=== PATIENT | male | born 1975 | race African-American/Black ===

== ENCOUNTER 2016-08-07 23:37 | Emergency (ER) | payer BC ==
[~2016-08-07] VITALS: Ht 182.9 cm; Wt 108.9 kg
[~2016-08-07 23:37] MED LIST: COLACE100 MG ORAL; DEBROX15 M1 OT; IBUPROFEN600 MG ORAL; IBUPROFEN600 MG PO; NORCO 5-325 TA1 EACH ORAL
[2016-08-07] MEDS ORDERED: NKM (23:56)
[2016-08-08] MEDS ORDERED: AMOXICILLIN500 MG ORAL (00:03)
[2016-08-08] MEDS ORDERED: IBUPROFEN600 MG PO (00:04)
[2016-08-08 00:15] VITALS: BP 108/60
[2016-08-08] MEDS ORDERED: Lidocaine 2% Visc 15ml soln ORAL ONE (00:15)
--- NOTE | 2016-08-13 13:41 | Emergency Room Report ---
History of Present Illness General Chief Complaint: Sore Throat Source: Patient Present Illness HPI Patient is a 41-year-old male who presented after increased sore throat. Patient had gradual onset of symptoms over the past one week. The patient not been vomiting. He denies any fever. He denied having productive cough. He denied any neck stiffness. He reported having some increased pain with swallowing. Allergies: Coded Allergies: No Known Allergies (Unverified , 11/23/12) Patient History Past Medical History: see triage record Reviewed Nursing Documentation: PMH: Agreed, PSxH: Agreed Nursing Documentation-PMH Past Medical History: No Stated History Review of Systems All Other Systems: negative except mentioned in HPI Physical Exam Vital Signs Date Time Temp Pulse Resp B/P Pulse Ox O2 Delivery O2 Flow Rate FiO2 08/07/16 23:52 97.9 62 18 108/60 97 Room Air General Appearance: well appearing, no apparent distress Head: normocephalic, atraumatic ENT: hearing grossly normal, normal voice, uvula midline, pharyngeal erythema - mild, no exudate Neck: full range of motion, supple Respiratory: no respiratory distress, speaking full sentences Musculoskeletal: no calf tenderness Neurologic: normal gait Psychiatric: mood/affect normal Skin: no rash Medical Decision Making Diagnostic Impression: Primary Impression: Sore throat Additional Impression: Pharyngitis ER Course Patient presented for sore throat. Differential diagnosis included but was not limited to meningitis, exudative tonsillitis, retropharyngeal abscess, epiglottitis, strep pharyngitis. Patient's benign exam and does not appear to require any further imaging or laboratory testing at this time. Patient was given viscous lidocaine for pain. The patient was given antibiotic prescription for probable strep pharyngitis. The patient is advised to follow up with primary care doctor in 1-2 days. Patient is advised to return if any worsening condition or if any changes in status that are concerning. Last Vital Signs Date Time Temp Pulse Resp B/P Pulse Ox O2 Delivery O2 Flow Rate FiO2 08/08/16 00:15 97.9 85 18 108/60 97 Room Air Disposition: HOME, SELF-CARE Condition: Stable Scripts Ibuprofen* (MOTRIN*) 600 Mg Tablet 600 MG PO TID, #20 TAB Take 1 tablet by mouth three times a day as needed for pain. Prov: Mike Thomas 08/08/16 Amoxicillin* (AMOXIL*) 500 Mg Capsule 500 MG ORAL THREE TIMES A DAY, #21 CAP Prov: Mike Thomas 08/08/16 Referrals: NOT CHOSEN IPA/MD,REFERRING (PCP) Patient Instructions: Sore Throat Mike Thomas Aug 13, 2016 13:41
== END 2016-08-08 00:15 | disposition home or self-care (01) ==
LOC: EMR 23:59
DX: J02.9 Acute pharyngitis, unspecified (principal)
CPT/HCPCS: 99284

== ENCOUNTER 2016-09-06 13:28 | Emergency (ER) | payer BC ==
[~2016-09-06] VITALS: Ht 182.9 cm; Wt 108.9 kg
[~2016-09-06 13:28] MED LIST changes: +AMOXICILLIN500 MG ORAL; +NKM
[2016-09-06 13:41] VITALS: BP 113/57
[2016-09-06] MEDS ORDERED: Phenazopyridine 200mg tab ORAL ONE (13:45)
[2016-09-06 14:19] LABS: APPEARANCE,URINE SLIGHTLY CLOUDY; KETONES,URINE NEGATIVE (NEGATIVE); LEUKOCYTE ESTERASE ,URINE 3+ (NEGATIVE); NITRITE,URINE NEGATIVE (NEGATIVE); PH,URINE 7 (4.5-8.0); PROTEIN,URINE NEGATIVE (NEGATIVE); UROBILINOGEN,URINE NORMAL MG/DL (0.0-1.0)
--- NOTE | 2016-09-06 14:24 | Emergency Room Report ---
History of Present Illness General Chief Complaint: Male Urogenital Problems Source: Patient Present Illness HPI 41 YO Male presents to the ED c/o penile d/c x 4 days with dysuria and recent unprotected intercourse, denies fevers, chills, lesions, testicular pain, swollen tender lymph nodes, or joint pain. denies abdominal pain, rashes, or previous hx of std's. Denies CP, Palpitations, LOC, AMS, dizziness, Changes in Vision, Sensation, paresthesias, or a sudden severe headache. Allergies: Coded Allergies: No Known Allergies (Unverified , 11/23/12) Patient History Past Medical History: see triage record Past Surgical History: none Pertinent Family History: none Reviewed Nursing Documentation: PMH: Agreed, PSxH: Agreed Nursing Documentation-PMH Past Medical History: No Stated History Review of Systems All Other Systems: negative except mentioned in HPI Physical Exam Vital Signs Date Time Temp Pulse Resp B/P Pulse Ox O2 Delivery O2 Flow Rate FiO2 09/06/16 13:34 97.7 64 14 113/57 99 Room Air Sp02 EP Interpretation: reviewed, normal General Appearance: no apparent distress, alert, GCS 15, non-toxic Head: normocephalic, atraumatic Eyes: bilateral eye PERRL, bilateral eye normal inspection ENT: hearing grossly normal, normal pharynx, no angioedema, normal voice Neck: full range of motion, supple/symm/no masses Respiratory: chest non-tender, lungs clear, normal breath sounds, speaking full sentences Cardiovascular #1: regular rate, rhythm, no edema Gastrointestinal: normal bowel sounds, non tender, soft, no guarding, no rebound Rectal: deferred Genitourinary: normal inspection, no CVA tenderness, scrotum normal, other - yellow-green penile d/c noted moderate amount, no lesions, no testicular swelling, erythema or tenderness, no palpable lymphnodes. Musculoskeletal: back normal, gait/station normal, normal range of motion, non- tender, no calf tenderness Neurologic: alert, oriented x3, responsive, motor strength/tone normal, sensory intact, speech normal Psychiatric: judgement/insight normal, memory normal, mood/affect normal Skin: normal color, no rash, warm/dry, well hydrated Lymphatic: no adenopathy Medical Decision Making PA Attestation Dr. Ibanez is my supervising Physician whom patient management has been discussed with. Diagnostic Impression: Primary Impression: Penile discharge, without blood ER Course Pt. presents to the ED c/o penile d/c x 4 days with dysuria and recent unprotected intercourse, denies fevers, chills, lesions, testicular pain, swollen tender lymph nodes, or joint pain. Ddx considered but are not limited to UTi , STI, G & C, trichomonas, Vaginitis , cervicitis, LGV, Urethritis Vital signs: are WNL, pt. is afebrile H&PE are most consistent with venereal disease ORDERS: - UA: TNTC WBC, and leukocyte esterase, few bacteria -Urine G & C: Pending ED INTERVENTIONS: -250mg Rocephin IM -Pyridium PO DISCHARGE: At this time pt. is stable for d/c to home. Will provide printed patient care instructions, and any necessary prescriptions. Care plan and follow up instructions have been discussed with the patient prior to discharge. Labs Test 09/06/16 13:40 Urine Color Pale yellow Urine Appearance Slightly cloudy Urine pH 7 (4.5-8.0) Urine Specific [place] 1.010 (1.005-1.035) Urine Protein Negative (NEGATIVE) Urine Glucose (UA) Negative (NEGATIVE) Urine Ketones Negative (NEGATIVE) Urine Occult Blood 3+ (NEGATIVE) Urine Nitrite Negative (NEGATIVE) Urine Bilirubin Negative (NEGATIVE) Urine Urobilinogen Normal MG/DL (0.0-1.0) Urine Leukocyte Esterase 3+ (NEGATIVE) Urine RBC 15-20 /HPF (0 - 0) Urine WBC Tntc /HPF (0 - 0) Urine Squamous Epithelial Cells Few /LPF (NONE/OCC) Urine Bacteria Few /HPF (NONE) Last Vital Signs Date Time Temp Pulse Resp B/P Pulse Ox O2 Delivery O2 Flow Rate FiO2 09/06/16 13:41 97.7 64 14 113/57 99 Room Air Disposition: HOME, SELF-CARE Condition: Stable Scripts Doxycycline Hyclate* (VIBRAMYCIN*) 100 Mg Capsule 100 MG ORAL EVERY 12 HOURS for 7 Days, #14 CAP 0 Refills Prov: Roxi Thompson.Ricci. 09/06/16 Referrals: NOT CHOSEN IPA/MD,REFERRING (PCP) Patient Instructions: Urethritis, Adult Additional Instructions: Take medications as directed. Follow up with PCP in 3-5 days Return sooner to ED if new symptoms occur, or current symptoms become worse. Pyridium will cause your urine to change color (Red/[place]), this is a normal side effect of the medication. - Please note that this Emergency Department Report was dictated using Can[employer]development specialist technology software, occasionally this can lead to erroneous entry secondary to interpretation by the dictation equipment. Roxi Thompson September 06, 2016 14:24
[2016-09-06] MEDS ORDERED: VIBRAMYCIN100 MG ORAL (14:25)
[2016-09-06] MEDS ORDERED: Lidocaine 1% MPF 10mg/ml 5ml ONE (14:29)
[2016-09-06 14:31] LABS: BACTERIA,URINE FEW /HPF; RBC,URINE 15-20 /HPF (0 - 0); SQUAMOUS EPITHELIAL CELL,UR FEW /LPF (NONE/OCC); WBC,URINE TNTC /HPF (0 - 0)
[2016-09-06 14:43] VITALS: BP 121/77
== END 2016-09-06 14:44 | disposition home or self-care (01) ==
LOC: EMR 13:59
DX: R36.9 Urethral discharge, unspecified (principal); R30.0 Dysuria
CPT/HCPCS: 81003; 87086; 87491; 87590; 96372; 99283; J0696

== ENCOUNTER 2017-11-06 02:10 | Emergency (ER) | payer SELFPAY ==
[~2017-11-06] VITALS: Ht 182.9 cm; Wt 108.9 kg
[~2017-11-06 02:10] MED LIST changes: +VIBRAMYCIN100 MG ORAL
[2017-11-06 02:40] VITALS: BP 140/79
--- NOTE | 2017-11-06 03:30 | Emergency Room Report ---
History of Present Illness General Chief Complaint: Wound Recheck/Suture Removal Source: Patient Present Illness HPI Patient is a 42-year-old male who presented after increased right hand pain. Patient reports having a recent been diagnosed with a contusion. He was noted to have the increased pain to the right small finger. He presented for wound recheck. Patient had injury prostatitis prior to arrival. He reports being seen at [facility] and being placed in a splint. The patient reports having a remove the splint several times. He reports feeling some clicking sensation to the right hand. He denies any numbness to the finger currently. Allergies: Coded Allergies: No Known Allergies (Unverified , 11/23/12) Patient History Reviewed Nursing Documentation: PMH: Agreed; PSxH: Agreed Nursing Documentation-PMH Past Medical History: No Stated History Review of Systems All Other Systems: negative except mentioned in HPI Physical Exam Vital Signs Date Time Temp Pulse Resp B/P (MAP) Pulse Ox O2 Delivery O2 Flow Rate FiO2 11/06/17 02:26 97.8 55 16 140/79 96 Room Air 97.9 General Appearance: well appearing, no apparent distress, alert, GCS 15, non- toxic Head: normocephalic, atraumatic ENT: hearing grossly normal, normal voice Neck: full range of motion, supple Respiratory: normal inspection, no respiratory distress, speaking full sentences Musculoskeletal: no calf tenderness, decreased range of mation, swelling Neurologic: normal gait Psychiatric: mood/affect normal Skin: no rash Medical Decision Making Diagnostic Impression: Primary Impression: Fracture of 5th metatarsal ER Course Patient presented for hand pain. Differential diagnosis included wasn't limited to hand fracture, dislocation, sprain, contusion, compartment syndrome among others. Patient has a benign exam and does not appear to require any laboratory testing at this time. The x-ray imaging of the right hand 3 views interpreted by me showed the nondisplaced right hand fifth metacarpal fracture. Patient was given ibuprofen for pain. Patient was placed in splint is advised follow-up with orthopedics for casting. Last Vital Signs Date Time Temp Pulse Resp B/P (MAP) Pulse Ox O2 Delivery O2 Flow Rate FiO2 11/06/17 02:40 97.9 55 16 140/79 96 Room Air 97.9 Status: improved Disposition: HOME, SELF-CARE Condition: Stable Mike Thomas MD Nov 06, 2017 03:30
[2017-11-06] MEDS ORDERED: NORCO 5-325 TA1 EACH ORAL (03:31)
[2017-11-06 05:00] VITALS: BP 140/79
--- NOTE | 2017-11-07 13:33 | Diagnostic Imaging Report ---
Indication: Pain Technique: XRAY Hand Complete R Comparison: None Findings: There is an acute slightly angulated and mildly displaced fracture of the distal shaft of the fifth metacarpal with overlying soft tissue swelling. No additional acute fracture identified. Likely chronic fracture of the ulnar styloid versus anatomic variant. No radiopaque foreign body identified. Impression: Acute fracture of the fifth metacarpal. This corresponds with the preliminary interpretation of the treating ER clinician, as documented in the electronic medical record.
== END 2017-11-06 05:05 | disposition home or self-care (01) ==
LOC: EMR 02:45
DX: S62.326D Displaced fracture of shaft of fifth metacarpal bone, right hand, subsequent encounter for fracture with routine healing (principal); X58.XXXD Exposure to other specified factors, subsequent encounter
CPT/HCPCS: 99283

== ENCOUNTER 2018-06-03 14:56 | Emergency (ER) | payer MEDICAID ==
[~2018-06-03] VITALS: Ht 182.9 cm; Wt 108.9 kg
--- NOTE | 2018-06-03 15:05 | NUR ---
ED Nurse Note: pt not in the waiting room
--- NOTE | 2018-06-03 15:18 | NUR ---
ED Nurse Note: pt not in the waiting room
--- NOTE | 2018-06-03 15:32 | NUR ---
ED Nurse Note: pt not in the waiting room
--- NOTE | 2018-06-03 15:47 | NUR ---
ED Nurse Note: patient walked into ED c/o coughing, runny nose, CP when coughing, [id number]. he said his cp is not radiating. a/o x4 from home
--- NOTE | 2018-06-03 15:55 | Emergency Room Report ---
History of Present Illness General Chief Complaint: Flu Like Symptoms Source: Patient Present Illness HPI 43-year-old male patient presents the ER complaining of "cold-like symptoms" for the past month intermittently. Cough with sputum. Denies hemoptysis. Denies history of smoking cigarettes, reports smoking marijuana. Denies history of asthma or MA. Reports reproducible chest pain with cough. Denies history of MA/stroke/high blood pressure/diabetes/high cholesterol. Reports did not receive flu vaccine this year. Denies fever. Denies shortness of breath. Denies vomiting or diarrhea. Denies recent travel. Denies earache. Reports sore throat symptoms during this time. Denies calf pain. Denies neck pain. Denies other aggravating or relieving factors. States has been taking odrs-ixz-bcedyed cough medications and states that "they do not work". Reports sick contacts at home. Allergies: Coded Allergies: No Known Allergies (Unverified , 06/03/18) Patient History Past Medical History: see triage record Reviewed Nursing Documentation: PMH: Agreed; PSxH: Agreed Nursing Documentation-PMH Past Medical History: No History, Except For Review of Systems All Other Systems: negative except mentioned in HPI Physical Exam Vital Signs Date Time Temp Pulse Resp B/P (MAP) Pulse Ox O2 Delivery O2 Flow Rate FiO2 06/03/18 15:37 98.2 65 16 115/70 97 Room Air Sp02 EP Interpretation: reviewed, normal General Appearance: well appearing, no apparent distress, alert, GCS 15, non- toxic Head: normocephalic, atraumatic Eyes: bilateral eye normal inspection, bilateral eye PERRL ENT: hearing grossly normal, normal pharynx, no angioedema, normal voice, TMs + canals normal, uvula midline, moist mucus membranes Neck: full range of motion, no meningismus, no bony tend Respiratory: lungs clear, normal breath sounds, no rhonchi, no respiratory distress, no accessory muscle use, no wheezing, speaking full sentences Cardiovascular #1: regular rate, rhythm, no edema Gastrointestinal: non tender, soft, no mass, non-distended, no guarding, no rebound Musculoskeletal: back normal, digits/nails normal, gait/station normal, normal range of motion, non-tender, no calf tenderness, Karen's Sign negative Neurologic: alert, oriented x3, responsive, motor strength/tone normal, sensory intact Psychiatric: mood/affect normal Skin: no rash Medical Decision Making PA Attestation is my supervising Physician whom patient management has been discussed with. Diagnostic Impression: Primary Impression: Atypical pneumonia ER Course Pt presents to ED c/o cough, sore throat, and "cold symptoms" x1 month. DDX considered but are not limited to influenza, viral URI, pneumonia, strep throat, rhinitis, sinusitis, otitis media, otitis externa, costochondritis, MA, pericarditis. Chest pain reproducible, likely secondary to cough. Denies CP at rest. Patient has no risk factors for cardiac etiology of symptoms, pain is been present for a month, low suspicion for MA. Does not require cardiac workup at this time. Advised patient take Tylenol or ibuprofen for pain symptoms. Follow with primary care provider to discuss further cardiac referral and workup at that time. VITAL SIGNS are WNL, patient is afebrile. ER COURSE: Lungs clear to auscultation, no wheezes, rhonci or rales. patient afebrile. . CXR shows no acute disease per the preliminary reading. No focal consolidation noted consistent with pneumonia. However due to duration of patient's symptoms , will treat patient with antibiotics for atypical pneumonia. no tonsillar exudates, no pharyngeal erythema, history of cough, no fever, no stridor, uvula midline, low suspicion for peritonsillar abscess. Likely viral etiology of symptoms. Symptomatic treatment. drink plenty of fluids. Salt water gargles for sore throat. Followup with PCP for further treatment and/or referral as needed. ER precautions given. DISCHARGE: -Rx given for Claritin -Rx given for Tylenol/Acetaminophen -Rx given for Tessalon Perles for cough sx. -Rx given for azithromycin At this time pt is stable for d/c to home. Patient is resting comfortably, in no acute distress, nontoxic appearing. Patient to take medications as instructed Will provide with patient care instructions and any necessary prescriptions. Care plan and follow-up instructions provided. Patient instructed to follow-up with primary care provider in 3 - 5 days. Patient questions asked and answered. Patient reports understanding and agreement to treatment plan. ER precautions given. Patient instructed to return to ER immediately for any new or worsening of symptoms including but not limited to increasing SOB, persistent fever, intractable vomiting. - Please note that this Emergency Department Report was dictated using Online Dealersonography technologist technology software, occasionally this can lead to erroneous entry secondary to interpretation by the dictation equipment. Chest X-Ray Diagnostic Results Chest X-Ray Diagnostic Results : Chest X-Ray Ordered: Yes # of Views/Limited/Complete: 1 View Indication: Chest Pain EP Interpretation: Yes PA Xray: Interpretation reviewed, by supervising MD, and agrees with findings. Interpretation: no consolidation, no effusion, no pneumothorax, no acute cardiopulmonary disease Impression: No acute disease RUDOLPH Scriblyla Text Justin Iyer PA-C Last Vital Signs Date Time Temp Pulse Resp B/P (MAP) Pulse Ox O2 Delivery O2 Flow Rate FiO2 06/03/18 15:37 98.2 65 16 115/70 97 Room Air Status: improved Disposition: HOME, SELF-CARE Condition: Stable Scripts Loratadine/Pseudoephedrine (CLARITIN-D 12 HOUR TABLET) 1 Each Tab.er.12h 1 TAB ORAL EVERY 12 HOURS, #24 TAB Prov: Robbi Iyer 06/03/18 Azithromycin* (ZITHROMAX*) 250 Mg Tablet 250 MG ORAL DAILY, #6 TAB 0 Refills Take two tables once daily for 1 day, then one tablet once daily for 4 days. Prov: Robbi Iyer 06/03/18 Benzonatate* (TESSALON PERLE*) 100 Mg Capsule 100 MG ORAL THREE TIMES A DAY, #20 PERLE Prov: Robbi Iyer 06/03/18 Acetaminophen* (TYLENOL EXTRA STRENGTH*) 500 Mg Tablet 500 MG ORAL Q8H PRN for Prn Headache/Temp > 101, #30 TAB 0 Refills Prov: Robbi Iyer 06/03/18 Patient Instructions: Community-Acquired Pneumonia, Adult, Ppgr-[id number], Costochondritis, Ymye-km-Bqzz, Upper Respiratory Infection, Adult, Mrtg-od-Ghlb Additional Instructions: Followup with primary care provider in 2-3 days. Take medications as directed. Take Tylenol for pain and fever symptoms. Drink plenty fluids. Salt water gargles for sore throat. Patient questions asked and answered. ER precautions given, patient instructed to return to ER immediately for any new or worsening of symptoms. Robbi Iyer Jun 03, 2018 15:55
[2018-06-03 16:00] VITALS: BP 115/70
[2018-06-03] MEDS ORDERED: Benzonatate 100mg Perles ORAL ONE (16:00)
[2018-06-03] MEDS ORDERED: CLARITIN-D 121 EAC1 ORAL (16:16)
[2018-06-03] MEDS ORDERED: ZITHROMAX250 MG ORAL (16:16)
[2018-06-03] MEDS ORDERED: TESSALON PERLE100 MG ORAL (16:16)
[2018-06-03] MEDS ORDERED: TYLENOL EXTRA500 MG ORAL (16:16)
--- NOTE | 2018-06-03 16:25 | NUR ---
ED Nurse Note: Patient is being discharged cleared by ER PA. discharge paper/instruction given to the patient, patient verbalized understanding. patient a/o x4, ambulated out of Ed with steady gait, with all belongings. ID band removed.
--- NOTE | 2018-06-03 17:01 | Diagnostic Imaging Report ---
Indication: Cough Technique: One view of the chest Comparison: none Findings: Lungs and pleural spaces are clear. Heart size is upper limits normal Impression: No acute process
== END 2018-06-03 16:24 | disposition home or self-care (01) ==
LOC: EMR 16:20
DX: J18.9 Pneumonia, unspecified organism (principal)
CPT/HCPCS: 71045; 99283

== ENCOUNTER 2018-09-22 16:05 | Emergency (ER) | payer MEDICAID ==
[~2018-09-22] VITALS: Ht 182.9 cm; Wt 108.9 kg
[~2018-09-22 16:05] MED LIST changes: +CLARITIN-D 121 EAC1 ORAL; +TESSALON PERLE100 MG ORAL; +TYLENOL EXTRA500 MG ORAL; +ZITHROMAX250 MG ORAL
[2018-09-22 16:22] VITALS: BP 112/69
--- NOTE | 2018-09-22 16:24 | NUR ---
ED Nurse Note: Patient walked in to ER c/o sore throat and dry cought for last 5 days. pt aao x4 and ambulatory. calm and cooperative. skin clean and intact. pt not coughing at this moment. BOWENS and dizziness present. no fever. pt denied N/V/D.
--- NOTE | 2018-09-22 16:34 | Emergency Room Report ---
History of Present Illness General Chief Complaint: Sore Throat Source: Patient Present Illness HPI 43-year-old male presents to the emergency department complaining of persistent cough with mucus in his throat and nasal congestion times one and a half weeks. Patient denies fevers, sore throat, neck pain/stiffness. Patient does report some sinus congestion headaches. Patient states pqee-gnm-oqydapo medications are not helping. Denies recent travel or ill contacts. Patient states he is not up-to-date with his sutures flu vaccination. No other aggravating or relieving factors. Patient reports hoarseness of his voice he states cough is worse at night where he is choking on mucus. Patient denies chest pain palpitations dyspnea or shortness of breath.he denies history of asthma, COPD or smoking besides marijuana. Allergies: Coded Allergies: No Known Allergies (Unverified , 06/03/18) Patient History Past Medical History: see triage record Past Surgical History: none Pertinent Family History: none Reviewed Nursing Documentation: PMH: Agreed; PSxH: Agreed Nursing Documentation-PMH Past Medical History: No Stated History Review of Systems All Other Systems: negative except mentioned in HPI Physical Exam Vital Signs Date Time Temp Pulse Resp B/P (MAP) Pulse Ox O2 Delivery O2 Flow Rate FiO2 09/22/18 16:12 97.5 60 18 98 Room Air 09/22/18 16:22 112/69 Sp02 EP Interpretation: reviewed, normal General Appearance: no apparent distress, alert, GCS 15, non-toxic Head: normocephalic, atraumatic Eyes: bilateral eye normal inspection, bilateral eye PERRL ENT: hearing grossly normal, normal voice, TMs + canals normal, uvula midline, moist mucus membranes, nasal congestion, other - post nasal drainage, no exudates, no tonsillar swelling. Neck: full range of motion, no meningismus, no bony tend Respiratory: chest non-tender, lungs clear, normal breath sounds, no respiratory distress, no accessory muscle use, no wheezing, speaking full sentences Cardiovascular #1: regular rate, rhythm Musculoskeletal: gait/station normal, normal range of motion, non-tender Neurologic: alert, oriented x3, responsive, motor strength/tone normal, sensory intact, speech normal, grossly normal Psychiatric: judgement/insight normal Skin: normal color, no rash, warm/dry, well hydrated Lymphatic: no adenopathy Medical Decision Making PA Attestation Dr. rodriguez is my supervising Physician whom patient management has been discussed with. Diagnostic Impression: Primary Impression: Bronchitis Additional Impression: Post-nasal drainage ER Course 43-year-old male presents to the emergency department complaining of persistent cough with mucus in his throat and nasal congestion times one and a half weeks. Patient denies fevers, sore throat, neck pain/stiffness. Patient does report some sinus congestion headaches. Patient states spjb-gkx-lsntmqx medications are not helping. Denies recent travel or ill contacts. Patient states he is not up-to-date with his sutures flu vaccination. No other aggravating or relieving factors. Patient reports hoarseness of his voice he states cough is worse at night where he is choking on mucus. Patient denies chest pain palpitations dyspnea or shortness of breath.he denies history of asthma, COPD or smoking besides marijuana. Ddx considered but are not limited to URI, pneumonia, PE, strep pharyngitis, meningitis. Vital signs: Pt. is afebrile, the remaining VS are WNL H&PE are most consistent with URI- no meningeal signs, oropharynx is not involved, no evidence of bacterial infection at this time. ORDERS: none required at this time, the diagnosis is clinical ED INTERVENTIONS: None required at this time. --PT. EDUCATION: Discussed antibiotic resistance with inappropriate prescribing of antibiotics for viral illnesses. Discussed signs and symptoms to indicate viral illness versus bacterial illness. DISCHARGE: At this time pt. is stable for d/c to home. Will provide printed patient care instructions, and any necessary prescriptions. Care plan and follow up instructions have been discussed with the patient prior to discharge. Last Vital Signs Date Time Temp Pulse Resp B/P (MAP) Pulse Ox O2 Delivery O2 Flow Rate FiO2 09/22/18 16:22 97.5 64 18 112/69 98 Room Air Status: improved Disposition: HOME, SELF-CARE Condition: Stable Scripts Guaifenesin (Guaifenesin) 1,200 Mg Tab.er.12h 1200 MG PO Q12HR for 10 Days, #20 TAB Prov: Roxi Thompson 09/22/18 Loratadine/Pseudoephedrine (ALLERGY RELIEF-D 12 HOUR TAB) 1 Each Tab.er.12h 1 EACH PO Q12HR for 7 Days, #14 TAB Prov: Roxi Thompson 09/22/18 Codeine/Promethazine Hcl* (PROMETHAZINE-CODEINE SYRUP*) 118 Ml Syrup 5 ML ORAL Q6H PRN for For Cough, #120 ML 0 Refills Prov: Roxi Thompson 09/22/18 Departure Forms: Return to Work Return to Work Date: September 25, 2018 Work Restrictions: None Return to Full Activity: September 25, 2018 Patient Instructions: Acute Bronchitis, Evmh-wh-Fpiz, Allergic Rhinitis Additional Instructions: Take medications as directed. Follow up with a Primary Care Provider in 3-5 days, even if your symptoms have resolved. --Please review list of primary care clinics, if you do not already have a primary care provider Return sooner to ED if new symptoms occur, or current symptoms become worse. Do not drink alcohol, drive, or operate heavy machinery while taking Cough Syrup as this may cause drowsiness. - Please note that this Emergency Department Report was dictated using FirstHand Technologiessteam clothes press operator technology software, occasionally this can lead to erroneous entry secondary to interpretation by the dictation equipment. Roxi Thompson September 22, 2018 16:34
[2018-09-22] MEDS ORDERED: ALLERGY RELIEF1 EACH PO (16:36)
[2018-09-22] MEDS ORDERED: PROMETHAZINE-C118 M1 ORAL (16:36)
[2018-09-22] MEDS ORDERED: GUAIFENESIN1200 MG PO (16:36)
--- NOTE | 2018-09-22 17:01 | NUR ---
ER DISCHARGE NOTE: Patient is cleared to be discharged per [facility], pt is aox4, on room air, with stable vital signs. pt was given dc and prescription instructions, pt was able to verbalize understanding, pt id band removed. pt is able to ambulate with steady gait. pt took all belongings.
== END 2018-09-22 17:00 | disposition home or self-care (01) ==
LOC: EMR 16:30
DX: J20.9 Acute bronchitis, unspecified (principal); R09.82 Postnasal drip
CPT/HCPCS: 99282